=== PATIENT | female | born 2000 | race Caucasian/White ===

== ENCOUNTER 2023-01-30 10:36 | Emergency (ER) | payer OTHER ==
[~2023-01-30] VITALS: Ht 167.6 cm; Wt 68.2 kg
[2023-01-30 11:52] LABS: BASO % 0.5 % (0.0-1.0); EOS # 0.1 10^3/uL (0.0-0.5); EOS % 0.7 % (0.0-3.0); HEMATOCRIT 44.6 % (36.0-47.0); HEMOGLOBIN 15.1 g/dl (12.0-15.5); LYMPH # 2.1 10^3/uL (1.5-5.0); LYMPH % 28.8 % (24.0-44.0); MEAN CORPUSCULAR HEMOGLOBIN 30.8 pg (27.0-33.0); MEAN CORPUSCULAR HGB CONC 33.9 g/dl (32.0-36.5); MONO # 0.5 10^3/uL (0.0-0.8); MONO % 6.7 % (2.0-8.0); NEUTROPHILS # 4.6 10^3/uL (1.5-8.5); NEUTROPHILS % 62.9 % (36.0-66.0); PLATELET COUNT, AUTOMATED 298 10^3/uL (150-450); WHITE BLOOD COUNT 7.3 10^3/uL (4.0-10.0)
[2023-01-30 12:13] LABS: LIPASE 37 U/L (12-53)
[2023-01-30 12:16] LABS: ALKALINE PHOSPHATASE 49 U/L (46-116); ALT/SGPT 15 U/L (7.0-40); AST/SGOT 17 U/L (<34); BILIRUBIN,TOTAL 0.5 MG/DL (0.3-1.2); BLOOD UREA NITROGEN 7 MG/DL (9-23); CALCIUM LEVEL 9.2 MG/DL (8.5-10.1); CARBON DIOXIDE LEVEL 26 MMOL/L (20-31); CHLORIDE LEVEL 105 MMOL/L (98-107); CREATININE FOR GFR 0.73 MG/DL (0.55-1.30); GLUCOSE, FASTING 79 MG/DL (60-100); POTASSIUM SERUM 4.4 MMOL/L (3.5-5.1); SODIUM LEVEL 137 MMOL/L (136-145); TOTAL PROTEIN 7.3 G/DL (5.7-8.2)
[2023-01-30 12:27] LABS: HCG, SERUM QUALITATIVE NEGATIVE (NEGATIVE)
[2023-01-30] MEDS ORDERED: NS 1,000 ML IV ONE (12:30)
[2023-01-30] MEDS ORDERED: KETOROLAC 30 MG/ML 1ML VIAL IV ONE (12:30)
[2023-01-30] MEDS ORDERED: NAPR-837 PO (14:17)
[2023-01-30 14:43] VITALS: BP 102/66
== END 2023-01-30 14:41 | disposition home or self-care (01) ==
LOC: M ED 10:36
DX: R10.2 Pelvic and perineal pain (principal); N94.10 Unspecified dyspareunia; Z88.0 Allergy status to penicillin; Z88.2 Allergy status to sulfonamides
CPT/HCPCS: 36415; 76830; 76856; 80053; 81001; 83690; 84703; 85025; 93976; 96374; 99284; J1885

== ENCOUNTER → 2023-09-10 | Outpatient (CLI) | payer OTHER ==
[~2023-09-10] MED LIST: NAPR-837 PO
[2023-09-10 14:15] LABS: BASO # 0.1 10^3/uL (0.0-0.2); BASO % 0.6 % (0.0-1.0); EOS # 0.1 10^3/uL (0.0-0.5); EOS % 0.9 % (0.0-3.0); HEMATOCRIT 44.5 % (36.0-47.0); LYMPH % 25.1 % (24.0-44.0); MEAN CORPUSCULAR HEMOGLOBIN 31.1 pg (27.0-33.0); MEAN CORPUSCULAR HGB CONC 33.7 g/dl (32.0-36.5); MEAN CORPUSCULAR VOLUME 92.3 fl (80.0-96.0); MONO # 0.6 10^3/uL (0.0-0.8); MONO % 7.3 % (2.0-8.0); NEUTROPHILS # 5.3 10^3/uL (1.5-8.5); PLATELET COUNT, AUTOMATED 311 10^3/uL (150-450); RED BLOOD COUNT 4.82 10^6/uL (4.00-5.40)
[2023-09-10 14:22] LABS: C REACTIVE PROTEIN QUANTITATIV < 0.40 MG/DL (<1.0)
[2023-09-10 14:24] LABS: RHEUMATOID FACTOR QUANT < 3.5 IU/ML (<14)
[2023-09-10 14:26] LABS: ERYTHROCYTE SEDIMENTATION RATE 8 mm/hr (0-20)
[2023-09-11 13:08] LABS: ANTINUCLEAR ANTIBODIES DIRECT Negative (Negative)
== END ==
LOC: M PLALAB 10:03
PROVIDERS: ATTEND Physician Assistant
DX: M54.50 Low back pain, unspecified (principal)

== ENCOUNTER 2023-10-15 16:40 | Emergency (ER) | payer OTHER ==
[~2023-10-15] VITALS: Ht 170.2 cm; Wt 77.1 kg
[2023-10-15 16:41] VITALS: BP 118/73; TEMP 98.4; O2SAT 100
== END 2023-10-15 17:23 | disposition left against medical advice (07) ==
LOC: M ED 16:40
DX: Z53.21 Procedure and treatment not carried out due to patient leaving prior to being seen by health care provider (principal)

== ENCOUNTER 2024-01-02 15:12 | Emergency (ER) | payer OTHER ==
[~2024-01-02] VITALS: Ht 170.2 cm; Wt 73.8 kg
[~2024-01-02 15:12] MED LIST changes: +BUPR150T12 PO
[2024-01-02] MEDS: SENNA 8.6 MG TAB (SENOKOT) PO STA (19:20)
[2024-01-02] MEDS: MOM 30ML SUSPENSION UDC PO STA (19:20)
[2024-01-02 19:34] VITALS: BP 121/61; TEMP 97.5; O2SAT 100
[2024-01-02] MEDS ORDERED: MIRA3350 PO (19:53)
[2024-01-02] MEDS ORDERED: SENN8.6T58 PO (19:53)
== END 2024-01-02 20:05 | disposition home or self-care (01) ==
LOC: M ED 15:12
DX: K59.00 Constipation, unspecified (principal); Z87.442 Personal history of urinary calculi; Z87.448 Personal history of other diseases of urinary system; Z86.19 Personal history of other infectious and parasitic diseases; F17.290 Nicotine dependence, other tobacco product, uncomplicated

== ENCOUNTER 2024-02-18 11:55 | Emergency (ER) | payer OTHER ==
[~2024-02-18] VITALS: Ht 170.2 cm; Wt 80.3 kg
[~2024-02-18 11:55] MED LIST changes: +MIRA3350 PO; +SENN8.6T58 PO
[2024-02-18 11:56] VITALS: BP 135/70; TEMP 97.9; O2SAT 99
[2024-02-18] MEDS ORDERED: PRENTAB9 PO (12:51)
[2024-02-18] MEDS ORDERED: ACET325C5 PO (12:51)
[2024-02-18] MEDS ORDERED: ANUSOL HC CREAM 30GM TOP STA (13:56)
[2024-02-18] MEDS ORDERED: FLEET ENEMA PR PRN (14:00)
[2024-02-19] MEDS ORDERED: LIDOCAINE 5% OINT 30GM TUBE TOP SCH (09:00)
== END 2024-02-18 12:49 | disposition admitted as inpatient to this hospital (09) ==
LOC: M ED 11:55
DX: Z53.21 Procedure and treatment not carried out due to patient leaving prior to being seen by health care provider (principal)

== ENCOUNTER 2024-02-18 12:38 | Outpatient (CLI) | payer OTHER ==
[~2024-02-18] VITALS: Ht 170.2 cm; Wt 81.0 kg
[2024-02-18] MEDS ORDERED: ACET325C5 PO (12:51)
[2024-02-18] MEDS ORDERED: PRENTAB9 PO (12:51)
[2024-02-18 12:59] VITALS: BP 108/64
[2024-02-18 14:01] VITALS: BP 109/63
[2024-02-18] MEDS ORDERED: HOME MED LIST COMPLETE! XX SCH (14:30)
[2024-02-18] MEDS: ANUSOL HC CREAM 30GM TOP SCH (14:56)
[2024-02-18] MEDS: LIDOCAINE 5% OINT 30GM TUBE TOP PRN (14:56)
[2024-02-18] MEDS: LIDOCAINE 5% OINT 30GM TUBE TOP STA (14:58)
[2024-02-18] MEDS: ANUSOL HC CREAM 30GM TOP STA (14:59)
[2024-02-18] MEDS: FLEET ENEMA PR PRN (15:23)
[2024-02-18] MEDS: MOM 30ML SUSPENSION UDC PO ONE (15:46)
== END 2024-02-18 16:21 | disposition home or self-care (01) ==
LOC: M LDO 12:38
PROVIDERS: ATTEND Advanced Practice Midwife
DX: O26.892 Other specified pregnancy related conditions, second trimester (principal); O99.62 Diseases of the digestive system complicating childbirth; O09.292 Supervision of pregnancy with other poor reproductive or obstetric history, second trimester; R10.2 Pelvic and perineal pain; K59.00 Constipation, unspecified; O22.42 Hemorrhoids in pregnancy, second trimester; Z3A.22 22 weeks gestation of pregnancy
CPT/HCPCS: 99281; G0463

== ENCOUNTER 2024-03-08 12:30 | Emergency (ER) | payer OTHER ==
[~2024-03-08] VITALS: Ht 170.2 cm; Wt 82.3 kg
[~2024-03-08 12:30] MED LIST changes: +ACET325C5 PO; +PRENTAB9 PO
[2024-03-08 14:59] VITALS: BP 105/64; TEMP 97.7; O2SAT 98
== END 2024-03-08 15:04 | disposition home or self-care (01) ==
LOC: M ED 12:30
DX: O98.513 Other viral diseases complicating pregnancy, third trimester (principal); Z20.89 Contact with and (suspected) exposure to other communicable diseases; Z3A.28 28 weeks gestation of pregnancy; Z88.0 Allergy status to penicillin; Z88.2 Allergy status to sulfonamides

== ENCOUNTER 2024-03-20 10:13 | Observation (INO) | payer OTHER ==
[~2024-03-20] VITALS: Ht 170.2 cm; Wt 85.6 kg
[2024-03-20 10:31] VITALS: BP 115/63
[2024-03-20] MEDS ORDERED: HOME MED LIST COMPLETE! XX SCH (10:35)
[2024-03-20 12:32] LABS: Trichomonas vaginalis (AMP) NOT DETECTED (NEGATIVE)
[2024-03-20 12:57] LABS: GC DNA AMPLIFICATION NEGATIVE (NEGATIVE)
[2024-03-20] MEDS: ACETAMINOPHEN 500 MG TAB PO ONE (13:12)
[2024-03-20 14:03] VITALS: BP 109/56
[2024-03-20] MEDS ORDERED: DOCUSATE SODIUM 100MG CAPSULE PO PRN (15:05)
[2024-03-20] MEDS ORDERED: diphenhydrAMINE 25MG CAP PO PRN (15:05)
[2024-03-20] MEDS: BETAMETHASONE SOLUSPAN 6MG/ML 5ML VIAL IM SCH (15:24)
[2024-03-20 17:18] VITALS: BP 109/53
[2024-03-21] MEDS: PRENATAL VITAMINS CHEWABLE TABLET PO SCH (09:00)
== END 2024-03-21 16:00 | disposition home or self-care (01) ==
LOC: M LDO 10:13 → M LDI 10:14
PROVIDERS: ADMIT Obstetrics & Gynecology; ATTEND Obstetrics & Gynecology
DX: O60.02 Preterm labor without delivery, second trimester (principal); Z88.0 Allergy status to penicillin; Z88.2 Allergy status to sulfonamides
CPT/HCPCS: 59025; 76815; 76817; 81001; 82731; 87081; 87661; 87810; 87850; 96372; G0463; J0702

== ENCOUNTER 2024-03-21 22:28 | Outpatient (CLI) | payer OTHER ==
[~2024-03-21] VITALS: Ht 170.2 cm; Wt 85.7 kg
[2024-03-21 22:49] VITALS: BP 124/66
[2024-03-21] MEDS: ACETAMINOPHEN 500 MG TAB PO ONE (23:56)
[2024-03-22 00:30] LABS: HEMOGLOBIN 12.5 g/dl (12.0-15.5); MEAN CORPUSCULAR HEMOGLOBIN 31.3 pg (27.0-33.0); MEAN CORPUSCULAR HGB CONC 34.7 g/dl (32.0-36.5); PLATELET COUNT, AUTOMATED 338 10^3/uL (150-450); WHITE BLOOD COUNT 17.3 10^3/uL (4.0-10.0)
[2024-03-22 00:31] LABS: ALKALINE PHOSPHATASE 59 U/L (46-116); ALT/SGPT 29 U/L (7.0-40); AST/SGOT 11 U/L (<34); BILIRUBIN,TOTAL 0.3 MG/DL (0.3-1.2); BLOOD UREA NITROGEN 7 MG/DL (9-23); CALCIUM LEVEL 9.2 MG/DL (8.5-10.1); CARBON DIOXIDE LEVEL 22 MMOL/L (20-31); CHLORIDE LEVEL 108 MMOL/L (98-107); GLOMERULAR FILTRATION RATE > 60.0 (>60); GLUCOSE, FASTING 114 MG/DL (60-100); POTASSIUM SERUM 4.3 MMOL/L (3.5-5.1); SODIUM LEVEL 139 MMOL/L (136-145); TOTAL PROTEIN 6.6 G/DL (5.7-8.2)
== END 2024-03-22 01:16 | disposition home or self-care (01) ==
LOC: M LDO 22:28
PROVIDERS: ATTEND Advanced Practice Midwife
DX: O26.892 Other specified pregnancy related conditions, second trimester (principal); R10.2 Pelvic and perineal pain; Z3A.27 27 weeks gestation of pregnancy
CPT/HCPCS: 36415; 59025; 80053; 81001; 85027; G0463

== ENCOUNTER 2024-04-17 11:09 | Outpatient (CLI) | payer OTHER ==
[~2024-04-17] VITALS: Ht 170.2 cm; Wt 89.0 kg
[2024-04-17] MEDS ORDERED: HOME MED LIST COMPLETE! XX SCH (11:25)
[2024-04-17 11:30] VITALS: BP 112/67
[2024-04-17 12:21] LABS: APPEARANCE, URINE CLEAR (CLEAR); BACTERIA, URINE AUTO NEGATIVE (NEGATIVE); BILIRUBIN, URINE AUTO NEGATIVE (NEGATIVE); BLOOD, URINE BLOOD NEGATIVE (NEGATIVE); COLOR, URINE STRAW (YELLOW); GLUCOSE, URINE (UA) AUTO NEGATIVE (NEGATIVE); KETONE, URINE AUTO NEGATIVE (NEGATIVE); LEUKOCYTE ESTERASE, URINE AUTO NEGATIVE (NEGATIVE); NITRITE, URINE AUTO NEGATIVE (NEGATIVE); PROTEIN, URINE AUTO NEGATIVE (NEGATIVE); RBC, URINE AUTO 0 /HPF (0-3); SPECIFIC GRAVITY URINE AUTO 1.006 (1.002-1.035); SQUAMOUS EPITHELIAL CELL UR AU 1 /HPF (0-6); UROBILINOGEN, URINE AUTO 0.2 mg/dL (0.0-2.0); WBC, URINE AUTO 0 /HPF (0-3)
== END 2024-04-17 13:01 | disposition home or self-care (01) ==
LOC: M LDO 11:09
PROVIDERS: ATTEND Specialist
DX: O26.893 Other specified pregnancy related conditions, third trimester (principal); R10.2 Pelvic and perineal pain; O09.293 Supervision of pregnancy with other poor reproductive or obstetric history, third trimester; O26.873 Cervical shortening, third trimester; Z88.2 Allergy status to sulfonamides; Z88.7 Allergy status to serum and vaccine; Z3A.30 30 weeks gestation of pregnancy
CPT/HCPCS: 59025; 81001; G0463

== ENCOUNTER 2024-04-24 14:09 | Outpatient (CLI) | payer OTHER ==
[~2024-04-24] VITALS: Ht 170.2 cm; Wt 90.4 kg
[2024-04-24] MEDS ORDERED: TUMS750C22 PO (14:21)
[2024-04-24 14:25] VITALS: BP 132/75
[2024-04-24] MEDS ORDERED: HOME MED LIST COMPLETE! XX SCH (15:05)
[2024-04-24 15:34] VITALS: BP 126/70
[2024-04-24 17:23] LABS: APPEARANCE, URINE HAZY (CLEAR); BACTERIA, URINE AUTO NEGATIVE (NEGATIVE); BILIRUBIN, URINE AUTO NEGATIVE (NEGATIVE); BLOOD, URINE BLOOD NEGATIVE (NEGATIVE); COLOR, URINE YELLOW (YELLOW); GLUCOSE, URINE (UA) AUTO NEGATIVE (NEGATIVE); KETONE, URINE AUTO NEGATIVE (NEGATIVE); LEUKOCYTE ESTERASE, URINE AUTO NEGATIVE (NEGATIVE); MUCUS, URINE SMALL (NEGATIVE); NITRITE, URINE AUTO NEGATIVE (NEGATIVE); PROTEIN, URINE AUTO NEGATIVE (NEGATIVE); RBC, URINE AUTO 0 /HPF (0-3); SQUAMOUS EPITHELIAL CELL UR AU 1 /HPF (0-6); UROBILINOGEN, URINE AUTO 0.2 mg/dL (0.0-2.0); WBC, URINE AUTO 1 /HPF (0-3)
[2024-04-24 18:13] LABS: GC DNA AMPLIFICATION NEGATIVE (NEGATIVE)
== END 2024-04-24 17:05 | disposition home or self-care (01) ==
LOC: M LDO 14:09
PROVIDERS: ATTEND Obstetrics & Gynecology
DX: O26.893 Other specified pregnancy related conditions, third trimester (principal); N89.8 Other specified noninflammatory disorders of vagina; R25.2 Cramp and spasm; O32.1XX9 Maternal care for breech presentation, other fetus; Z3A.31 31 weeks gestation of pregnancy
CPT/HCPCS: 59025; 76815; 81001; 87810; 87850; G0463

== ENCOUNTER → 2024-05-14 | Outpatient (REF) | payer OTHER ==
[~2024-05-14] MED LIST changes: +COLA100C5 PO; +IBUP80TA PO; +PERCOCET PO; +TUMS750C22 PO
== END ==
LOC: M SFHCWAGY 15:13
PROVIDERS: ATTEND Nurse Practitioner Women's Health
DX: N34.3 Urethral syndrome, unspecified (principal)

== ENCOUNTER 2024-06-30 20:43 | Emergency (ER) | payer OTHER ==
[~2024-06-30] VITALS: Ht 170.2 cm; Wt 82.8 kg
[2024-06-30] MEDS ORDERED: LINZ290C PO (21:03)
[2024-07-01 03:03] VITALS: BP 121/79; TEMP 96.9; O2SAT 100
== END 2024-07-01 04:43 | disposition home or self-care (01) ==
LOC: M ED 20:43
DX: S60.222A Contusion of left hand, initial encounter (principal); W22.09XA Striking against other stationary object, initial encounter; K59.00 Constipation, unspecified; Y92.009 Unspecified place in unspecified non-institutional (private) residence as the place of occurrence of the external cause; Y93.89 Activity, other specified; Y99.9 Unspecified external cause status; Z88.0 Allergy status to penicillin; Z88.2 Allergy status to sulfonamides; Z79.899 Other long term (current) drug therapy

== ENCOUNTER → 2024-12-18 | Outpatient (CLI) | payer OTHER ==
[~2024-12-18] MED LIST changes: +LINZ290C PO
== END ==
LOC: M PLAIMG 14:22
PROVIDERS: ATTEND Nurse Practitioner Family
DX: R10.31 Right lower quadrant pain (principal)